=== PATIENT | female | born 1990 | race Caucasian/White ===

== ENCOUNTER 2016-07-15 20:14 | Emergency (ER) | payer OTHER ==
[2016-07-15 20:48] VITALS: TEMP 98.2
[2016-07-15] MEDS ORDERED: ALPRAZolam 0.25 MG TAB PO ONE (21:49)
--- NOTE | 2016-07-15 21:56 | EDPHY ---
H & P Time Seen by Provider: 07/15/16 21:51 HPI/ROS: HPI: 25-year-old female presents to emergency department with chief concern anxiety requesting Xanax. Reports increased anxiety that includes increased stress feeling and occasional shortness of breath since her move from [facility] to [facility] in the past week. She has taken 0.25 mg twice daily Xanax for the better part of the last 3 years. She has had no primary care provider, stating that she moves around a lot. Denies dizziness, headache, shortness of breath, chest pain tremors, nausea, vomiting. No suicidal or homicidal ideation. No visual or auditory hallucination. Denies illicit drug use. Reports moderate drinking occasionally. ROS:10 point review of systems is negative other than as stated in HPI Past Medical/Surgical History: Anxiety Social History: Recently moved here from [place] Smoking Status: Current every day smoker Physical Exam: Vital signs stable, reviewed by me General: Awake, alert, calm, cooperative. No acute distress. Head: Normalocephalic. Atraumatic. EENT: PERRLA. EOMI. No pallor or injection. Anicteric. No nystagmus. Neck: Supple, nontender. No lymphadenopathy. Full range of motion. Respiratory: Breathing unlabored. Breath sounds equal bilaterally and clear to auscultation. No adventitious sounds. CV: Chest nontender, atraumatic. Heart rate regular and tachycardic. No murmur , rub, or gallop. Brisk cap refill all extremities. Neuro: Alert. Oriented x 3. Speech clear. Nonfocal cranial nerves throughout. Sensation intact all extremities. Strength 5+ all extremities. Follows commands. Skin: Skin warm, dry, intact. Extremities: Full range of motion in all 4 extremities. Mental status: Interactive, appropriate, well-groomed. Constitutional: Initial Vital Signs Temperature (C) 36.8 C 07/15/16 20:46 Heart Rate 131 H 07/15/16 20:46 Respiratory Rate 18 07/15/16 20:46 Blood Pressure 109/87 H 07/15/16 20:46 O2 Sat (%) 95 07/15/16 20:46 O2 Delivery Mode Room Air Allergies/Adverse Reactions: No Known Allergies Allergy (Unverified 07/15/16 20:44) Home Medications: Medication Instructions Recorded Mirtazapine 07/15/16 Propranolol HCl 07/15/16 Xanax 07/15/16 Medical Decision Making ED Course/Re-evaluation: 25-year-old female presents to emergency department requesting Xanax for anxiety stating that she has been taking 0.25 mg twice daily Xanax for most of the last 3 years. When asked who prescribes this for her she states I move around a lot. Last Xanax dose 2 days ago. Patient admits to drinking alcohol , stating that she drank as recently as today. I will therefore give her 1 dose of her Xanax, and have referred her to primary care for follow-up, counseling her to the importance of this for ongoing evaluation as well as therapy. I have also counseled her regarding [facility]. Differential Diagnosis: Anxiety, withdrawal, drug-seeking behavior Departure - Departure Disposition: Home, Routine, Self-Care Clinical Impression: Anxiety Condition: Good Instructions: Anxiety (ED) Additional Instructions: Plan: Since you verbalized drinking alcohol, and have drink as recently as today, I am not able to prescribe Xanax for you, you are given 1 dose here in the emergency department. You will need to follow up with primary care for ongoing evaluation and treatment. 1 has been recommended for you in your paperwork. Additionally, you may go to [facility] if you are having issues with your anxiety. Referrals: NONE *PRIMARY CARE P,. [Primary Care Provider] - As per Instructions Rhianna Bailey, RN, CARE TECHNICIAN [Certified Nurse Practioner] - As per Instructions
[2016-07-15 22:14] VITALS: BP 109/69; PULSE 101; RESP 20; O2SAT 96
== END 2016-07-15 22:14 | disposition home or self-care (01) ==
DX: F41.9 Anxiety disorder, unspecified (principal); F17.200 Nicotine dependence, unspecified, uncomplicated

== ENCOUNTER 2016-07-22 22:09 | Emergency (ER) | payer OTHER ==
[2016-07-22 22:16] VITALS: TEMP 98.1; O2SAT 93
--- NOTE | 2016-07-22 22:29 | EDPHY ---
H & P Stated Complaint: xanax withdrawal HPI/ROS: HPI CHIEF COMPLAINT: Alcohol abuse, alcohol intoxication, I would like to go to detox HISTORY OF PRESENT ILLNESS: This patient 25-year-old female, she presents emergency room stating that she drank alcohol today her last drink was an hour ago. She presents with a friend and she would like to go to alcohol detox. She does tell me she has a history of polysubstance abuse including cocaine. She tells me she does cocaine regularly. She also tells me that her last Xanax dose was over 2 days ago. Past Medical History: Anxiety, polysubstance abuse Past Surgical History: Denies recent surgical history Social History: Admitting admits to daily alcohol, cocaine, history of Xanax Family History: Noncontributory ROS REVIEW OF SYSTEMS: A comprehensive 10 point review of systems is otherwise negative aside from elements mentioned in the history of present illness. Exam Constitutional smells of alcohol, triage nursing summary reviewed, vital signs reviewed, awake/alert. Eyes normal conjunctivae and sclera, EOMI, PERRLA. HENT normal inspection, atraumatic, moist mucus membranes, no epistaxis, neck supple/ no meningismus, no raccoon eyes. Respiratory clear to auscultation bilaterally, normal breath sounds, no respiratory distress, no wheezing. Cardiovascular tachycardic, regular rhythm, no murmur, no edema, distal pulses normal. Gastrointestinal soft, non-tender, no rebound, no guarding, normal bowel sounds, no distension, no pulsatile mass. Genitourinary no CVA tenderness. Musculoskeletal no midline vertebral tenderness, full range of motion, no calf swelling, no tenderness of extremities, no meningismus, good pulses, neurovascularly intact. Skin pink, warm, & dry, no rash, skin atraumatic. Neurologic awake, alert and oriented x 3, AAOx3, moves all 4 extremities equally, motor intact, sensory intact, CN II-XII intact, normal cerebellar, normal vision, normal speech. Psychiatric normal mood/affect. Heme/Lymph/Immune no lymphadenopathy. Differential Diagnosis: includes but is not limited to in a particular order acute alcohol intoxication, alcohol abuse, polysubstance abuse, anxiety Medical Decision Making: patient checked in the emergency room if she is requesting go to alcohol detox. We will obtain a breath alcohol. And arrange transport to detox with [facility]. Re-evaluation: Source: Patient - Personal History LMP (Females 10-55): Now Current Tetanus/Diphtheria Vaccine: Yes - Medical/Surgical History Hx Asthma: No Hx Chronic Respiratory Disease: No Hx Diabetes: No Hx Cardiac Disease: No Hx Renal Disease: No Hx Cirrhosis: No Hx Alcoholism: No Hx HIV/AIDS: No Hx Splenectomy or Spleen Trauma: No Other PMH: PMHx: anxiety, HTN. PSHx: denies - Social History Smoking Status: Current every day smoker Constitutional: Initial Vital Signs Temperature (C) 36.7 C 07/22/16 22:13 Heart Rate 122 H 07/22/16 22:13 Respiratory Rate 16 07/22/16 22:13 Blood Pressure 111/78 07/22/16 22:13 O2 Sat (%) 93 07/22/16 22:13 O2 Delivery Mode Room Air Allergies/Adverse Reactions: No Known Allergies Allergy (Unverified 07/15/16 20:44) Home Medications: Medication Instructions Recorded Mirtazapine 07/15/16 Propranolol HCl 07/15/16 Xanax 07/15/16 Departure - Departure Disposition: Home, Routine, Self-Care Clinical Impression: Alcohol abuse Alcoholic intoxication Qualifiers: Complication of substance-induced condition: uncomplicated Qualifier Code: ( F10.120) Alcohol abuse with intoxication, uncomplicated Condition: Good Instructions: Abuse of Alcohol (ED), Alcohol Intoxication (ED)
[2016-07-22] MEDS ORDERED: CHLORDIAZEPOXIDE 25MG PREPK#6 BTL TAKEHOME ONE (22:33)
[2016-07-22 22:49] VITALS: BP 109/76; PULSE 108; RESP 20
== END 2016-07-22 22:57 | disposition home or self-care (01) ==
DX: F10.120 Alcohol abuse with intoxication, uncomplicated (principal); I10 Essential (primary) hypertension; F17.200 Nicotine dependence, unspecified, uncomplicated